=== PATIENT | female | born 2000 | race Caucasian/White ===

== ENCOUNTER 2024-02-19 21:21 | Inpatient (IN) | payer OTHER, SELFPAY ==
[2024-02-19] VITALS (28 sets, daily range): BP systolic 124–164; BP diastolic 62–112; PULSE 80–106; TEMP 36.4; O2SAT 96–100; BMI 38.3
[2024-02-19 21:03] LABS: Basophils Percent Auto 0.4 % (0.2-1.2); Eosinophils Absolute Auto 0.1 K/mm3 (0-0.3); Eosinophils Percent Auto 0.8 % (0-4.4); Hematocrit 34.5 % (37.0-47.0); Hemoglobin 11.9 g/dL (12.0-15.0); Immature Granulocyte Absolute 0.04 K/mm3 (0.00-0.031); Immature Granulocyte Percent A 0.4 % (0-0.5); Lymphocytes Absolute Auto 1.66 K/mm3 (0.9-3.2); Lymphocytes Percent Auto 17.9 % (18.3-44.2); Mean Corpuscular HGB Conc 34.5 g/dl (32-36); Mean Corpuscular Hemoglobin 29.2 pg (26-34); Mean Corpuscular Volume 84.6 fl (80-100); Mean Platelet Volume 12.5 fl (7.4-10.4); Monocytes Absolute Auto 0.6 K/mm3 (0.1-0.6); Monocytes Percent Auto 6.6 % (2.6-8.5); Neutrophils Absolute Auto 6.9 K/mm3 (1.3-6.7); Neutrophils Percent Auto 73.9 % (45.5-73.1); Platelet Count Result 213 k/mm3 (150-375); Red Blood Count 4.08 M/mm3 (4.2-5.4); Red Cell Distribution Width 12.6 % (11.5-14.5); White Blood Count 9.3 K/mm3 (4.5-10.0)
[2024-02-19 21:03] LABS: Creatinine Urine 225.1 mg/dL; Total Protein Urine Random 46 mg/dL
[2024-02-19 21:05] LABS: Add Urine Microscopic? YES; Appearance Urine Cloudy (Clear); Bacteria Urine 4+ /hpf; Bilirubin Urine Negative (Negative); Blood Urine Negative (Negative); Color Urine Yellow (Yellow); Glucose Urine UA Negative (Negative); Ketones Urine Trace mg/dL (Negative); Leukocyte Esterase Ur 1+ LEU/UL (Negative); Need Manual Microscopic Reviewed; Nitrate Urine Negative (Negative); Protein Urine 2+ mg/dL (Negative); Specific Grav Ur 1.031 (1.001-1.035); Squamous Epithelial Cell Urine Many /hpf (Few)
[2024-02-19 21:13] LABS: Alanine Aminotransferase 11 U/L (6-35); Albumin Level 3.2 g/dL (3.5-5.1); Alkaline Phosphatase 194 U/L (38-126); Anion Gap 7 mmol/L (4-12); Aspartate Amino Transferase 19 U/L (14-36); Bilirubin,Total 0.3 mg/dL (0.2-1.3); Blood Urea Nitrogen 8 mg/dL (7-17); Calcium 8.9 mg/dL (8.4-10.2); Carbon Dioxide 21 mmol/L (22-30); Chloride 106 mmol/L (98-107); Estimated Glomerular Filt Rate > 60; Glucose 113 mg/dL (65-110); Potassium 3.8 mmol/L (3.4-5.0); Sodium 134 mmol/L (137-145); Uric Acid 6.2 mg/dL (2.5-7.5)
[2024-02-19 21:52] LABS: Barbiturate Screen Urine Negative (Negative); Benzodiazepines Screen Urine Negative (Negative)
[2024-02-19 21:53] LABS: Cannabinoid Screen Urine Negative (Negative); Cocaine Screen Urine Negative (Negative); Methadone Screen Urine Negative (Negative); Opiate Screen Urine Negative (Negative); Phencyclidine Screen Urine Negative (Negative)
--- NOTE | 2024-02-19 21:56 | LDADM ---
This patient, Earnestine Craven, was admitted to Labor/Delivery/Recovery 102 on 02/19/24 at 21:21. Plans for labor, pain management and were discussed with patient. Patient/family oriented to hospital policies and general routines including ID bracelet, bed and alarms, visiting hours, pain management, procedures, bathroom and other care routines, personal items, smoking policy, room service/diet and guest tray routines, security routines, and visiting hours. Patient/Family are encouraged to report perceived risks to care and to ask questions if they do not understand what they are told or what they should do. See OBIX for further documentation.
[2024-02-19 22:00] LABS: Basophils Percent Auto 0.4 % (0.2-1.2); Eosinophils Absolute Auto 0.1 K/mm3 (0-0.3); Eosinophils Percent Auto 0.6 % (0-4.4); Hematocrit 34.4 % (37.0-47.0); Hemoglobin 11.9 g/dL (12.0-15.0); Immature Granulocyte Absolute 0.04 K/mm3 (0.00-0.031); Immature Granulocyte Percent A 0.4 % (0-0.5); Lymphocytes Absolute Auto 1.74 K/mm3 (0.9-3.2); Lymphocytes Percent Auto 18.8 % (18.3-44.2); Mean Corpuscular HGB Conc 34.6 g/dl (32-36); Mean Corpuscular Hemoglobin 29.2 pg (26-34); Mean Corpuscular Volume 84.3 fl (80-100); Mean Platelet Volume 12.6 fl (7.4-10.4); Monocytes Absolute Auto 0.6 K/mm3 (0.1-0.6); Monocytes Percent Auto 6.9 % (2.6-8.5); Neutrophils Absolute Auto 6.7 K/mm3 (1.3-6.7); Neutrophils Percent Auto 72.9 % (45.5-73.1); Platelet Count Result 231 k/mm3 (150-375); Red Blood Count 4.08 M/mm3 (4.2-5.4); Red Cell Distribution Width 12.5 % (11.5-14.5); White Blood Count 9.3 K/mm3 (4.5-10.0)
[2024-02-19 22:15] LABS: Amphetamine Screen Urine Positive (Negative)
--- NOTE | 2024-02-19 22:38 | PM.IMHP ---
H&P: HPI History of Present Illness Date/Time: 02/19/24 22:38 Chief Complaint: at 37. 4 weeks gestation arrived by ambulance for evaluation of elevated bp at home. on ambulance severe range blood pressures, here in hospital bp elevated without severe range pressures. pt had an elevated bp in the office on 02/17/24. pt tested positive for methamphetamine use on 02/16 and agin today on admission, GBS negative. has also been complicated by diet controlled GDM Review of Systems Review of Systems: All systems reviewed & are unremarkable except as noted in HPI and below PMFSH Social History Social History Smoking status: Current every day smoker Tobacco type: e-cigarettes/vaping Substance use: current Do You Feel Safe in your Home?: Yes Lack of Transportation: YES Lack of Food: Never True Current Housing: I Have Housing Concerned About Future Housing: No Difficulty Paying Gas/Electric Bills: No Difficulty Paying for Meds: No Currently Unemployed: No Education: High School Diploma/GED Difficulty w/ Childcare or Family Care: No Spiritual care concerns: No Meds Home Medications and Allergies Allergies Allergy/AdvReac Type Severity Reaction Status Date / Time No Known Allergies Allergy Verified 02/19/24 22:37 Vital Signs Vital Signs - 24 hr 02/19/24 20:31 02/19/24 21:01 02/19/24 21:31 Pulse Rate 101 H 89 90 Blood Pressure 155/89 H 134/77 132/75 Pulse Oximetry Oxygen Delivery 02/19/24 21:33 02/19/24 21:38 02/19/24 21:43 Pulse Rate Blood Pressure Pulse Oximetry 99 99 99 Oxygen Delivery 02/19/24 21:48 02/19/24 21:53 02/19/24 21:53 Pulse Rate Blood Pressure Pulse Oximetry 99 99 97 Oxygen Delivery 02/19/24 21:58 02/19/24 22:03 02/19/24 22:08 Pulse Rate Blood Pressure Pulse Oximetry 98 97 98 Oxygen Delivery 02/19/24 22:09 02/19/24 22:17 02/19/24 22:22 Pulse Rate 89 Blood Pressure 158/112 H Pulse Oximetry 96 97 Oxygen Delivery 02/19/24 22:27 02/19/24 22:32 02/19/24 22:37 Pulse Rate 89 Blood Pressure 124/62 Pulse Oximetry 97 98 96 Oxygen Delivery 02/19/24 21:55 Pulse Rate Blood Pressure Pulse Oximetry Oxygen Delivery Room Air Exam Const: General: cooperative and healthy appearing Resp: Effort & Inspection: normal respiratory effort Cardio: Rate: regular rate GI: Other: soft/gravid Skin: General skin exam: normal color Neuro: General: patient oriented x3 Extrem: General: normal to inspection H&P: Results Labs Labs: Short CBC 02/19/24 02/19/24 Range/Units 20:48 21:55 WBC 9.3 9.3 (4.5-10.0) K/mm3 Hgb 11.9 L 11.9 L (12.0-15.0) g/dL Hct 34.5 L 34.4 L (37.0-47.0) % Plt Count 213 231 (150-375) k/mm3 BMP 02/19/24 20:48 Sodium 134 L Potassium 3.8 Chloride 106 Carbon Dioxide 21 L BUN 8 Creatinine 0.60 L Glucose 113 H Calcium 8.9 Liver Function 02/19/24 Range/Units 20:48 Total Bilirubin 0.3 (0.2-1.3) mg/dL AST 19 (14-36) U/L ALT 11 (6-35) U/L Alkaline Phosphatase 194 H (38-126) U/L Albumin 3.2 L (3.5-5.1) g/dL Urine 02/19/24 Range/Units 20:47 Urine Color Yellow (Yellow) Urine Appearance Cloudy H (Clear) Urine pH 6.0 (5.0-9.0) Ur Specific [place] 1.031 (1.001-1.035) Urine Protein 2+ H (Negative) mg/dL Urine Glucose (UA) Negative (Negative) mg/dL Assessment and Plan Assessment and plan (1) Gestational diabetes: Code(s): O24.419 - Gestational diabetes mellitus in , unspecified control Status: Acute (2) Amphetamine abuse: Code(s): F15.10 - Other stimulant abuse, uncomplicated Status: Acute (3) Gestational HTN: Code(s): O13.9 - Gestational [-induced] hypertension without significant proteinuria, unspecified trimester Status: Acute Plan gestational hypertension amphetamine use diet controlle
[2024-02-19 22:52] LABS: HIV 1/2 Ab P24 Ag Result Negative (Negative)
--- NOTE | 2024-02-19 23:01 | WPDANESEPP ---
Anes - Eval Pre Procedure Procedure: Labor Epidural Date/Time: 02/19/24 23:01 Surgeon: Goran Preop Diagnosis: Labor Pain Pre Op Diagnosis: PIH Workup Patient Data Age: 24 Gender: F Height: 1.55 m Weight: 92 kg Last Vital Signs Pulse 89 02/19/24 22:32 BP 124/62 02/19/24 22:32 Pulse Ox 100 02/19/24 22:57 O2 Del Method Room Air 02/19/24 21:55 Allergies Allergy/AdvReac Type Severity Reaction Status Date / Time No Known Allergies Allergy Verified 02/19/24 22:37 Laboratory Tests 02/19/24 02/19/24 02/19/24 20:47 20:48 21:55 WBC 9.3 K/mm3 9.3 K/mm3 (4.5-10.0) (4.5-10.0) RBC 4.08 L M/mm3 4.08 L M/mm3 (4.2-5.4) (4.2-5.4) Hgb 11.9 L g/dL 11.9 L g/dL (12.0-15.0) (12.0-15.0) Hct 34.5 L % 34.4 L % (37.0-47.0) (37.0-47.0) MCV 84.6 fl 84.3 fl (80-100) (80-100) MCH 29.2 pg 29.2 pg (26-34) (26-34) MCHC 34.5 g/dl 34.6 g/dl (32-36) (32-36) RDW 12.6 % 12.5 % (11.5-14.5) (11.5-14.5) Plt Count 213 k/mm3 231 k/mm3 (150-375) (150-375) MPV 12.5 H fl 12.6 H fl (7.4-10.4) (7.4-10.4) Immature Gran % (Auto) 0.4 % 0.4 % (0-0.5) (0-0.5) Neut % (Auto) 73.9 H % 72.9 % (45.5-73.1) (45.5-73.1) Lymph % (Auto) 17.9 L % 18.8 % (18.3-44.2) (18.3-44.2) [place] % (Auto) 6.6 % 6.9 % (2.6-8.5) (2.6-8.5) Eos % (Auto) 0.8 % 0.6 % (0-4.4) (0-4.4) Baso % (Auto) 0.4 % 0.4 % (0.2-1.2) (0.2-1.2) Lymph # (Auto) 1.66 K/mm3 1.74 K/mm3 (0.9-3.2) (0.9-3.2) [place] # (Auto) 0.6 K/mm3 0.6 K/mm3 (0.1-0.6) (0.1-0.6) Eos # (Auto) 0.1 K/mm3 0.1 K/mm3 (0-0.3) (0-0.3) Baso # (Auto) 0.0 K/mm3 0.0 K/mm3 (0.0-0.1) (0.0-0.1) Abs Immat Gran (auto) 0.04 H K/mm3 0.04 H K/mm3 (0.00-0.031) (0.00-0.031) Absolute Neuts (auto) 6.9 H K/mm3 6.7 K/mm3 (1.3-6.7) (1.3-6.7) Absolute Nucleated RBC 0.000 K/mm3 0.000 K/mm3 (0.0-0.012) (0.0-0.012) Nucleated RBC % 0.0 % 0.0 % (0.0-0.2) (0.0-0.2) Sodium 134 L mmol/L (137-145) Potassium 3.8 mmol/L (3.4-5.0) Chloride 106 mmol/L (98-107) Carbon Dioxide 21 L mmol/L (22-30) Anion Gap 7 mmol/L (4-12) BUN 8 mg/dL (7-17) Creatinine 0.60 L mg/dL (0.7-1.0) Estim Creat Clear Calc Not Reportable Estimated GFR > 60 (59 - ) Glucose 113 H mg/dL (65-110) Uric Acid 6.2 mg/dL (2.5-7.5) Calcium 8.9 mg/dL (8.4-10.2) Total Bilirubin 0.3 mg/dL (0.2-1.3) AST 19 U/L (14-36) ALT 11 U/L (6-35) Alkaline Phosphatase 194 H U/L (38-126) Total Protein 7.0 g/dL (6.3-8.2) Albumin 3.2 L g/dL (3.5-5.1) Urine Color Yellow (Yellow) Urine Appearance Cloudy H (Clear) Urine pH 6.0 (5.0-9.0) Ur Specific [place] 1.031 (1.001-1.035) Urine Protein 2+ H mg/dL (Negative) Urine Glucose (UA) Negative mg/dL (Negative) Urine Ketones Trace H mg/dL (Negative) Ur Blood (Man) Negative (Negative) Urine Nitrate Negative (Negative) Urine Bilirubin Negative (Negative) Urine Urobilinogen 1.0 mg/dL (<2.0) Add Ur Microanalysis Reviewed Leukocyte Esterase Rfl 1+ H [place] (Negative) Urine RBC 3-5 H /hpf (0-2) Urine WBC 11-20 H /hpf (0-3) Ur Squamous Epith Cells Many H /hpf (Few) Urine Bacteria 4+ H /hpf Urine Casts 3-5 U Random Total Protein 46 mg/dL Urine Creatinine 225.1 mg/dL Protein/Creat Ratio 2 0.20 mg/mg (0-0.20) Urine Opiates Screen Negative (Negative) Urine Methadone Screen Negative (Negative) Ur Barbiturates Screen Neg
[2024-02-19] MEDS: LABETALOL HCL 100 MG TABLET 200 MG PO (23:55)
[2024-02-20] VITALS (276 sets, daily range): BP systolic 114–163; BP diastolic 64–108; PULSE 62–112; RESP 16–20; TEMP 36.2–36.9; O2SAT 66–100
[2024-02-20] MEDS: MAGNESIUM SULF 4 GM/WATER100ML 4 GM/100 ML BAG IVPB
[2024-02-20] MEDS: LACTATED RINGERS 1,000 ML 75 ML IV CONT ×3 (00:01→13:13)
[2024-02-20] MEDS: MAGNESIUM SULF 20GM/WATER500ML 500 ML 50 MG IV CONT ×3 (00:39→21:31)
[2024-02-20] MEDS: miSOPROStol 25 MCG TABLET 50 MCG BUCCAL ×3 (00:39→08:44)
[2024-02-20 00:45] LABS: Glucose Point of Care 94 mg/dl (65-105)
[2024-02-20 04:43] LABS: Glucose Point of Care 87 mg/dl (65-105)
[2024-02-20 05:01] LABS: Rapid Plasma Reagin Non-Reactive (NonReactive)
[2024-02-20 08:52] LABS: Glucose Point of Care 83 mg/dl (65-105)
--- NOTE | 2024-02-20 11:30 | PM.OBPNLAB ---
Pain Control Date/time seen: 02/20/24 11:30 Comments: Blood pressures stable, magnesium sulfate, labetalol 200mg po BID, SVE 2-3/70/-2 AROM, moderate amount of clear, odorless fluid, IUPC placed. anticipate vaginal delivery
[2024-02-20] MEDS: fentaNYL CITRATE INJ (*CRX) 100 MCG/2 ML VIAL IV PUSH (12:51)
[2024-02-20 13:02] LABS: Glucose Point of Care 82 mg/dl (65-105)
[2024-02-20 14:19] LABS: Basophils Percent Auto 0.3 % (0.2-1.2); Eosinophils Absolute Auto 0.1 K/mm3 (0-0.3); Eosinophils Percent Auto 0.5 % (0-4.4); Hematocrit 37.6 % (37.0-47.0); Hemoglobin 12.5 g/dL (12.0-15.0); Immature Granulocyte Absolute 0.07 K/mm3 (0.00-0.031); Immature Granulocyte Percent A 0.7 % (0-0.5); Lymphocytes Absolute Auto 1.49 K/mm3 (0.9-3.2); Lymphocytes Percent Auto 14.4 % (18.3-44.2); Mean Corpuscular HGB Conc 33.2 g/dl (32-36); Mean Corpuscular Hemoglobin 28.4 pg (26-34); Mean Corpuscular Volume 85.5 fl (80-100); Mean Platelet Volume 12.5 fl (7.4-10.4); Monocytes Absolute Auto 0.6 K/mm3 (0.1-0.6); Monocytes Percent Auto 5.5 % (2.6-8.5); Neutrophils Absolute Auto 8.1 K/mm3 (1.3-6.7); Neutrophils Percent Auto 78.6 % (45.5-73.1); Platelet Count Result 235 k/mm3 (150-375); Red Cell Distribution Width 12.5 % (11.5-14.5); White Blood Count 10.3 K/mm3 (4.5-10.0)
[2024-02-20 14:32] LABS: Alanine Aminotransferase 12 U/L (6-35); Albumin Level 3.4 g/dL (3.5-5.1); Alkaline Phosphatase 229 U/L (38-126); Anion Gap 5 mmol/L (4-12); Aspartate Amino Transferase 21 U/L (14-36); Bilirubin,Total 0.4 mg/dL (0.2-1.3); Blood Urea Nitrogen 5 mg/dL (7-17); Calcium 7.4 mg/dL (8.4-10.2); Carbon Dioxide 23 mmol/L (22-30); Chloride 100 mmol/L (98-107); Estimated CRCL calculation 148 ml/min; Estimated Glomerular Filt Rate > 60; Glucose 89 mg/dL (65-110); Sodium 128 mmol/L (137-145); Uric Acid 6.1 mg/dL (2.5-7.5)
--- NOTE | 2024-02-20 15:14 | PC.NURSE ---
see OBIX for vital signs
[2024-02-20 16:40] LABS: Glucose Point of Care 81 mg/dl (65-105)
[2024-02-20] MEDS: OXYTOCIN 30 UNITS/NS 500 ML 30 UNITS/500 ML BAG 999 UNITS IV CONT (17:25)
--- NOTE | 2024-02-20 17:34 | P.PCNOB_ITS ---
OB - Vaginal Delivery Note Procedure Delivery date: 02/20/24 Events: Preeclampsia w severe features and Other (amphetamine positive) Induction method: AROM, Per Misoprostol Protocol and Per Pitocin Protocol Delivery monitor: External Uterine and Internal Uterine Route of delivery: Episiotomy description: None Laceration Description: None Specimen: Yes Quantitative Blood Loss (ml): 50 Anesthesia type: Epidural Disposition: Floor Complications: No immediate complications [place] Baby Date of : 02/20/24 Time of : 17:26 Gestational Age by Date: 36 Infant gender: Female Weight (pounds): 5 Weight (ounces): 7 presentation: vertex position: Left Occiput Anterior Placenta delivery description: Spontaneous Cord Vessel Description: 3 Vessels, Nuchal Cord (x1), Loose and Clamped/Cut Narrative: baby to warmer for evaluation
[2024-02-20] MEDS: OXYTOCIN 30 UNITS/NS 500 ML 30 UNITS/500 ML BAG 125 UNITS IV CONT (18:17)
[2024-02-20] MEDS: IBUPROFEN 600 MG TABLET PO (20:58)
[2024-02-20] MEDS: ACETAMINOPHEN 325 MG TABLET 650 MG PO (20:58)
[2024-02-21] VITALS (7 sets, daily range): BP systolic 122–154; BP diastolic 70–94; PULSE 75–90; RESP 16–18; TEMP 36.3–37; O2SAT 99–100
[2024-02-21] MEDS: MAGNESIUM SULF 20GM/WATER500ML 500 ML 50 MG IV CONT (07:08)
[2024-02-21] MEDS: ACETAMINOPHEN 325 MG TABLET 650 MG PO ×3 (07:11→20:00)
--- NOTE | 2024-02-21 08:02 | PM.OBPNVD ---
OB - PN: Subj Subjective Date/time seen: 02/21/24 08:02 Interval history: pp day 1 denies headache, visual changes, epigastric pain magnesium sulfate running planning 24 hr after delivery baby in nursery care coordination to see pt bp stable OB - PN: Obj Data Labs 02/21/24 03:51 02/20/24 14:05 Labs: Laboratory Results - last 24 hr 02/20/24 02/20/24 02/20/24 08:48 12:59 14:05 WBC 10.3 H RBC 4.40 Hgb 12.5 Hct 37.6 MCV 85.5 MCH 28.4 MCHC 33.2 RDW 12.5 Plt Count 235 MPV 12.5 H Immature Gran % (Auto) 0.7 H Neut % (Auto) 78.6 H Lymph % (Auto) 14.4 L [place] % (Auto) 5.5 Eos % (Auto) 0.5 Baso % (Auto) 0.3 Lymph # (Auto) 1.49 [place] # (Auto) 0.6 Eos # (Auto) 0.1 Baso # (Auto) 0.0 Abs Immat Gran (auto) 0.07 H Absolute Neuts (auto) 8.1 H Absolute Nucleated RBC 0.000 Nucleated RBC % 0.0 Sodium 128 L Potassium 4.0 Chloride 100 Carbon Dioxide 23 Anion Gap 5 BUN 5 L Creatinine 0.50 L Estim Creat Clear Calc 148 Estimated GFR > 60 Glucose 89 POC Capillary Glucose 83 82 Uric Acid 6.1 Calcium 7.4 L Total Bilirubin 0.4 AST 21 ALT 12 Alkaline Phosphatase 229 H Total Protein 7.0 Albumin 3.4 L 02/20/24 02/21/24 16:33 03:51 WBC RBC Hgb 11.7 L Hct 34.3 L MCV MCH MCHC RDW Plt Count MPV Immature Gran % (Auto) Neut % (Auto) Lymph % (Auto) [place] % (Auto) Eos % (Auto) Baso % (Auto) Lymph # (Auto) [place] # (Auto) Eos # (Auto) Baso # (Auto) Abs Immat Gran (auto) Absolute Neuts (auto) Absolute Nucleated RBC Nucleated RBC % Sodium Potassium Chloride Carbon Dioxide Anion Gap BUN Creatinine Estim Creat Clear Calc Estimated GFR Glucose POC Capillary Glucose 81 Uric Acid Calcium Total Bilirubin AST ALT Alkaline Phosphatase Total Protein Albumin OB - PN A/P Plan day: 1 Plan: routine care Time Spent With Patient Time: Total time spent is greater than 50% in coordination of care (as documented) at patient's floor/unit and/or counseling patient: Review of Systems Review of Systems: All systems reviewed & are unremarkable except as noted in HPI and below Exam Const: General: cooperative and obese Chest: Chest palpation & inspection: normal inspection of the chest Resp: Effort & Inspection: normal respiratory effort Cardio: Rate: regular rate GI: Other: soft Skin: General skin exam: normal color Neuro: General: patient oriented x3 Extrem: General: normal to inspection Psych: Appearance: grossly normal
[2024-02-21 08:46] LABS: Basophils Absolute Auto 0.1 K/mm3 (0.0-0.1); Basophils Percent Auto 0.5 % (0.2-1.2); Eosinophils Absolute Auto 0.1 K/mm3 (0-0.3); Eosinophils Percent Auto 0.8 % (0-4.4); Hematocrit 34.6 % (37.0-47.0); Hemoglobin 11.6 g/dL (12.0-15.0); Immature Granulocyte Absolute 0.15 K/mm3 (0.00-0.031); Immature Granulocyte Percent A 1.4 % (0-0.5); Lymphocytes Absolute Auto 2.41 K/mm3 (0.9-3.2); Lymphocytes Percent Auto 23.2 % (18.3-44.2); Mean Corpuscular HGB Conc 33.5 g/dl (32-36); Mean Corpuscular Hemoglobin 29.3 pg (26-34); Mean Corpuscular Volume 87.4 fl (80-100); Mean Platelet Volume 12.4 fl (7.4-10.4); Monocytes Absolute Auto 0.9 K/mm3 (0.1-0.6); Monocytes Percent Auto 8.2 % (2.6-8.5); Neutrophils Absolute Auto 6.8 K/mm3 (1.3-6.7); Neutrophils Percent Auto 65.9 % (45.5-73.1); Platelet Count Result 218 k/mm3 (150-375); Red Blood Count 3.96 M/mm3 (4.2-5.4); Red Cell Distribution Width 12.6 % (11.5-14.5); White Blood Count 10.4 K/mm3 (4.5-10.0)
--- NOTE | 2024-02-21 10:53 | WPDANLDPN2 ---
Anes-Prog Note L&D Date/Time: 02/21/24 10:53 Comfortable throughout: labor and delivery Neuraxial method: epidural Epidural/Spinal procedure site: clean & non-tender Neuro status: Neuro function grossly intact. Cardiovascular status: normal Respiratory status: normal Airway patency: baseline Mental status: baseline Post-Op hydration status: normal Vital Signs: Last Vital Signs Temp 36.4 C L 02/21/24 07:40 Pulse 88 02/21/24 07:40 Resp 16 02/21/24 07:40 BP 131/73 02/21/24 07:40 Pulse Ox 100 02/21/24 07:40 O2 Del Method Room Air 02/19/24 21:55 Pain score (VAS): 4/10 I/O: Intake & Output 02/20/24 02/21/24 02/21/24 23:59 07:59 15:59 Intake Total 1000 1380.8 Output Total 1900 Balance 1000 -519.2 Post-procedural complaints: none Patient feedback: Patient satisfied with anesthetic care.
[2024-02-21] MEDS: IBUPROFEN 600 MG TABLET PO ×2 (11:45→17:34)
[2024-02-21] MEDS: LACTATED RINGERS 1,000 ML 75 ML IV CONT (11:52)
--- NOTE | 2024-02-21 15:21 | OBPPTRN ---
Patient transferred to post room # via ( ). Support person present. Oriented to unit, room, information board, rooming in, admission packet and security measures. Patient verbalizes understanding.
--- NOTE | 2024-02-21 16:26 | PCCCNOTE ---
met with pt. and YUSUF Allen. This is pt.'s second child, Alejandro's first. Pt. reports she has a son at home. Pt. and Alejandro report they have all necessary supplies at home including a car seat, crib, clothing etc. When asked pt. confirms that she did use methamphetamines, she reports that she hasn't used in several months however does think she smoked a methamphetamine laced marijuana blunt during her baby shower and this is the cause of the positive test. Pt. made aware baby tested positive as well. Pt. denies any other substance use besides marijuana and methamphetamines. Pt. aware that DCFS will be contacted and will likely come meet with her to determine plan. Pt. reports she has had DCFS in the past and this report was recently (within last year) closed. She confirms one of the allegations during that time was methamphetamine use. Pt. offered resources for drug cessation however she declines, she states this was a one off and she has been sober for some time. Requested resources and a list of PMD's to establish with a provider. This was provided to her. Submitted online DCFS report # [id number] with above information. 16:00 Called DCFS hotline to inquire whether they have processed report. Spoke with Lissette Barlow (call report # [id number]) who reports she cannot provide information other than to state that above DCFS report # is still being processed and someone will contact the medical case manager once processed. Spoke with RN who confirms pt. may be ready for discharge in next day or so pending ability to feed and gain weight.
--- NOTE | 2024-02-21 19:20 | PC.NURSE ---
Per DCFS Skiff Operator Shukri Brunson, baby not to be discharged under the parents care. Notify DCFS prior to discharge.
[2024-02-22 00:30] VITALS: BP 147/91; PULSE 71; RESP 18; TEMP 36.6
[2024-02-22] MEDS: IBUPROFEN 600 MG TABLET PO ×3 (00:30→17:03)
[2024-02-22 04:10] VITALS: BP 123/81; PULSE 86
--- NOTE | 2024-02-22 07:09 | P.PNOB_ITS ---
OB - PN: Subj Subjective Date/time seen: 02/22/24 07:09 Interval history: pp day 2 denies headache, visual changes, epigastric pain baby will not be going home with pt will continue to monitor bp OB - PN: Obj Data Labs 02/21/24 08:35 02/20/24 14:05 Labs: Laboratory Results - last 24 hr 02/21/24 02/21/24 03:51 08:35 WBC 10.4 H RBC 3.96 L Hgb Cancelled 11.6 L Hct Cancelled 34.6 L MCV 87.4 MCH 29.3 MCHC 33.5 RDW 12.6 Plt Count 218 MPV 12.4 H Immature Gran % (Auto) 1.4 H Neut % (Auto) 65.9 Lymph % (Auto) 23.2 [place] % (Auto) 8.2 Eos % (Auto) 0.8 Baso % (Auto) 0.5 Lymph # (Auto) 2.41 [place] # (Auto) 0.9 H Eos # (Auto) 0.1 Baso # (Auto) 0.1 Abs Immat Gran (auto) 0.15 H Absolute Neuts (auto) 6.8 H Absolute Nucleated RBC 0.000 Nucleated RBC % 0.0 OB - PN A/P Plan day: 2 Plan: routine care Time Spent With Patient Time: Total time spent is greater than 50% in coordination of care (as documented) at patient's floor/unit and/or counseling patient: Review of Systems Review of Systems: All systems reviewed & are unremarkable except as noted in HPI and below Exam Const: General: cooperative and healthy appearing Chest: Chest palpation & inspection: normal inspection of the chest Cardio: Rate: regular rate GI: Other: soft Extrem: General: normal to inspection
[2024-02-22 07:30] VITALS: BP 139/69; PULSE 70; RESP 16; TEMP 36.8; O2SAT 100
[2024-02-22] MEDS: LABETALOL HCL 100 MG TABLET 200 MG PO ×2 (07:47→20:50)
[2024-02-22 13:00] VITALS: BP 140/70; PULSE 68; RESP 15; O2SAT 99
[2024-02-22 15:34] VITALS: BP 143/70; PULSE 71; RESP 16; O2SAT 99
[2024-02-22 20:50] VITALS: BP 145/91; PULSE 74; RESP 18; TEMP 36.7
[2024-02-22] MEDS: ACETAMINOPHEN 325 MG TABLET 650 MG PO (20:50)
[2024-02-23 00:05] VITALS: BP 108/63; PULSE 80
[2024-02-23] MEDS: IBUPROFEN 600 MG TABLET PO ×2 (00:07→06:44)
[2024-02-23 04:56] VITALS: BP 132/86; PULSE 75
[2024-02-23 07:50] VITALS: BP 130/75; PULSE 76; RESP 16; TEMP 36.4; O2SAT 99
--- NOTE | 2024-02-23 08:59 | PM.OBPNVD ---
OB - PN: Subj Subjective Date/time seen: 02/23/24 08:59 Interval history: pp day 2 denies headache, visual changes, epigastric pain baby will not be going home with pt will continue to monitor bp Patient comments: no complaints, pain well controlled and tolerating diet OB - PN: Obj Data Labs 02/21/24 08:35 02/20/24 14:05 OB - PN A/P Plan day: 2 Plan: routine care and discharge home Time Spent With Patient Time: Total time spent is greater than 50% in coordination of care (as documented) at patient's floor/unit and/or counseling patient: Exam Const: General: comfortable and no acute distress Resp: Effort & Inspection: normal respiratory effort Auscultation: no rales, no rhonchi and no wheezes Cardio: Rate: regular rate Heart sounds: no click, no murmurs and no rubs GI: GI Palp: Yes Soft to palpation and No Tenderness to palpation present (GI) Auscultation: normal bowel sounds Extrem: General: normal to inspection, no pedal edema and no calf tenderness
--- NOTE | 2024-02-23 09:00 | P.DS_ITS ---
DS: Admitting Diagnosis Discharge Date February 23, 2024 Admitting Diagnosis term DS: Discharge Diagnosis Discharge Diagnosis (1) Term delivered: Code(s): O80 - Encounter for full-term uncomplicated delivery Status: Acute OB - DS: Summary OB Procedures : None OB Procedures Intrapartum: Spontaneous Vag Delivery OB Procedures: : None Peripartum Data Laceration Description: None Episiotomy description: None Time Spent with Patient Time attestation: Total time spent providing and/or coordinating discharge services: DS: Data Data Completed and Pending Pending studies at discharge: Pending at discharge 02/20/24 17:28 Surgical [PTH] Routine Discharge Plan Discharge Discharging Clinician: Дмитрий Sheldon Patient Disposition: Home, Self-Care Activity: pelvic rest Diet: regular Patient Instructions: Antibiotic Form Stand Alone Forms: General Discharge Information Follow-up/Referrals: Дмитрий Sheldon MD [Physician] - Discharge Medications: New labetalol 100 mg Tablet 200 mg PO Q12HR Qty: 60 0RF Date of admission: 02/19/24 21:21 Primary Care Provider: PHYSICIAN,SENIOR CONTROLS ANALYST Admitting Provider: Richard Zimmer Attending physician on admission: Richard Zimmer Condition: Stable
[2024-02-23] MEDS: LABETALOL HCL 100 MG TABLET 200 MG PO (09:18)
[2024-02-25 10:13] VITALS: BP 152/102; PULSE 74; RESP 18; TEMP 36.3; O2SAT 100
== END 2024-02-23 14:30 | disposition home or self-care (01) | DRG 560 ==
LOC: ANHOBOP 21:22 → ANHLDR 21:34 → ANHOB2 02-21 12:16 → ANHLDR 02-25 07:10 → ANHOB2 02-25 07:10
PROVIDERS: Advanced Practice Midwife; Obstetrics & Gynecology; Admitting Provider Obstetrics & Gynecology; Visit Provider Obstetrics & Gynecology
DX: O13.4 Gestational [pregnancy-induced] hypertension without significant proteinuria, complicating childbirth (principal); Z37.0 Single live birth; Z3A.37 37 weeks gestation of pregnancy; O69.81X0 Labor and delivery complicated by cord around neck, without compression, not applicable or unspecified; O14.14 Severe pre-eclampsia complicating childbirth; O24.420 Gestational diabetes mellitus in childbirth, diet controlled; O99.324 Drug use complicating childbirth; F15.10 Other stimulant abuse, uncomplicated
CPT/HCPCS: 36415; 80053; 80307; 81001; 82570; 82948; 84156; 84550; 85014; 85018; 85025; 86592; 86703; 86850; 86900; 86901; 87086; 88307; A9270; G0432; J2590; J2795; J3010; J3475; J7120

== ENCOUNTER 2025-01-08 18:36 | Outpatient (RCR) | payer OTHER, SELFPAY ==
[2025-01-08 19:17] VITALS: BP 136/81; PULSE 97
--- NOTE | 2025-01-08 19:19 | PC.NURSE ---
Pt discharged home undelivered in stable condition per order. Discharge instructions discussed with pt, pt stated understanding, all questions and concerns answered. Pt ambulated out of department with all belongings. S.O @ pt side.
== END 2025-04-08 23:59 | disposition home or self-care (01) ==
LOC: ANHOBOP 18:36
PROVIDERS: Visit Provider Obstetrics & Gynecology
DX: O36.8130 Decreased fetal movements, third trimester, not applicable or unspecified (principal); Z3A.39 39 weeks gestation of pregnancy
CPT/HCPCS: 59025

== ENCOUNTER 2025-01-12 08:14 | Inpatient (IN) | payer OTHER, SELFPAY ==
[2025-01-12] VITALS (51 sets, daily range): BP systolic 92–174; BP diastolic 34–150; PULSE 73–107; RESP 16–20; TEMP 35.8–36.6; O2SAT 95–100; BMI 45.8
--- OUTSIDE RECORDS SUMMARY | 2025-01-12 08:26 | XMS_ITS | Patient Health Record ---
Demographics Address [address] [place] [address] Mobile Email Address Preferred Language en Marital Status unmarried Roman Catholic Affiliation Unknown Race White Ethnic Group Not or Lati no Author Organization [facility] Address [address] [place] [address] Care Team Providers Care Store Coordinator Name Role Phone Teresa Walsh Primary Care Provider [phone] Reason For Referral No Information Social History PRAPARE Question Answer Notes Date Completed/Updated: 09/24/2024 What is your current housing situation? I have h ousing Are you worried about losing your housing? No What is the highest level of school that you have finished? High school diploma or GED What is your current work situation? Unemployed and seeking work In the past year, have you o r any family members you live with been unable to get any of the following when it was really needed? Check all that apply I do not have problems meeting my needs Has lack of transportation k ept you from medical appointments, meetings, work or from getting things needed for daily living? No How often do you see or talk to people that you care about and feel close to? (For example: talking to friends on the phone, visiting friends or family, going to confucianism or club meetings) More than 5 times a week How stressed are you? Stress is when someone feels tense, nervous, anxious, or can\t sleep at night because their mind is troubled Somewhat In the past year have you sp ent more than 2 nights in a row in a correction, usp, jail center, or juvenile correctional facility? No Do you feel physically and e motionally safe where you currently live? Yes In the past year, have you b een afraid of your partner or ex-partner? No PRAPARE Score: 5 Encounters Encounter Location Date Provider Diagnosis [address] [place] [address] 09/25/2024 Teresa Walsh Plan Of Treatment No Information Insurance Providers Payer Name Payer Address Payer Phone Subscriber Number Group Number Insured Name Patient Relationship to Insured Coverage Start Date Coverage End Date [facility] Att Claims Department [address] [place] [address] [id number] Still, Earnestine Self - patient is the insured 4
--- OUTSIDE RECORDS SUMMARY | 2025-01-12 08:26 | XMS_ITS | Clinical Summary ---
Demographics Address [address] [place] [address] Home Phone Mobile Phone Email Address Preferred Language Belarusian Marital Status Life Partner Bahai Affiliation Unknown Race White Ethnic Group Not or Lati no Author [facility] Address [address] [place] [id number] Care Team Providers Care Grades 7 And 8 Teacher Name Role Phone No, Physician Primary Care Provider [phone] Allergies No known active allergies Medications vit 41-qnxh-jauqf-dh a 27mg iron- 800 mcg-250 mg capsule Take by mouth Active Active Problems Problem Noted Date Diagnosed Date LGSIL on Pap smear of cervix 11/18/2023 Abnormal Papanicolaou smear of cervix with positive human papilloma virus (HPV) test 10/23/2023 Encounter for supervision of normal , a ntepartum 08/21/2023 History of diet controlled g estational diabetes mellitus (GDM) 08/21/2023 History of drug abuse 08/21/2023 Immunizations Immunization Administration Dates Next Due Tdap 12/17/2023 Medical History Medical History Date Comments Gestational diabetes Family History Medical History Relation Name Comments Diabetes Father Hypertension Father Diabetes Maternal Grandmother Diabetes Paternal Grandmother Breast cancer Neg Hx Colon cancer Neg Hx Ovarian cancer Neg Hx Uterine cancer Neg Hx Relation Name Status Comments Father Maternal Grandmother Paternal Grandmother Social History Tobacco Use Types Packs/Day Years Used Date Smoking Tobacco: Every Day Cigarettes Smokeless Tobacco: Never Tobacco Cessation:Ready to Q uit: Not Asked; Counseling Given: Not Answered Comments No Sex and Gender Information Value Date Recorded Sex Assigned at Not on file Legal Sex Female 6:59 PM TOP ICER Gender Identity Female 07/04/2023 11:21 PM TOP ICER Sexual Orientation Straight 07/04/2023 11 :21 PM TOP ICER Obstetrics History Para Term AB IAB SAB Ectopic Multiple Livin g Live Births 3 1 1 1 1 1 1 Date Outcome GA Total Labor Labor/2nd/3rd Weight Sex Type Anes PTL Felicia A1 A5 Name Clin 014 Term 39w 0d 3.572 kg (7 lb 14 oz) M Vag-S pont Epidur al N Livin g Complications:Gestational di abetes Delivery Location:[facility] 2018 SAB SAB Last Filed Vital Signs Vital Sign Reading Time Taken Comments Blood Pressure 120/70 12/17/2023 1:53 PM CDT Pulse - - Temperature - - Respiratory Rate - - Oxygen Saturation - - Inhaled Oxygen Concentration - - Weight 89.8 kg (198 lb) 12/17/2023 1:53 PM CDT Height 154.9 cm (5' 1) 12/17/2023 1:53 PM CDT Body Mass Index 37.41 12/17/2023 1:53 PM CDT Plan of Treatment Health Maintenance Due Date Last Done Comments Depression Screening 1999 Regular Well Visit/Exam 18-64 2017 Pneumococcal vaccine <65 (1 of 2 - PCV) 2018 Cervical Cancer Screening 08/20/2024 08/21/2023, 02/2024 Influenza Vaccine (#1) 2025 6, 02/13/2016, 04/12/2015, Additional history exists DTaP/Tdap/Td Vaccine (7 - Td or Tdap) 12/16/2033 12/17/2023, 01/29/2014, 08/02/2011, Additional history exists Hepatitis B Screening Completed 12/15/2002 , 06/26/2002, 03/09/2002 Varicella Vaccines Completed 01/11/2010, 11/07/2001 HPV Vaccines Completed 02/13/2016, 01/12, 08/02/2011 Hepatitis C Screening Completed 12/17/2023 Procedures Procedure Name Priority Date/Time Associated Diagnosis Comments HEPATITIS C ANTIBODY Routine 12/17/2023 2:53 PM CDT Encounter for supervision of normal in first trimester, unspecified PAP WITH REFLEX TO HIGH RISK HPV Routine 08/21/2023 11:07 AM CDT Encounter for supervision of normal in first trimester, unspecified Encounter for screening for cervical cancer from Last 3 Months or Most Recently Relevant to Health Maintenance Results * Hepatitis C antibody Blood (12/17/2023 2:53 PM CDT) Hep C Ab Nonreactive Nonreactive Comment: Antibodies to HCV not detected. Does NOT exclude the possibility of recent exposure to HCV. Current interpretive data was last revised on 22 Interpretive Data Nonreactive: Antibodies to HCV not detected. Does NOT exclude the possibility of recent exposure to HCV. Equivocal: Equivocal for HCV antibodies. Supplemental molecular testing will be automatically performed to determine infection status in accordance with current CDC screening recommendations. Reactive: Positive for HCV antibodies. This may represent current or past HCV infection. Supplemental molecular testing will be automatically performed to determine current infection status in accordance with current CDC screening recommendations. Interpretive data was last revised on 2019. Blood 12/17/2023 2:53 PM CDT 12/17/2023 6:32 PM CDT Tessa Phillips NP LAB MICROBIOLOGY - GENERAL O RDERABLES Edited Result - Final [facility] [address] [facility] Department [place] [address] * (ABNORMAL) Pap with reflex to High Risk HPV and Genotyping (Cytology Component) (08/21/2023 11:07 AM CDT) Endocervical (Pap test) 08/21/2023 11:07 AM CDT 08/22/2023 2:09 PM CDT Narrative [facility] - 08/29/2023 8:51 AM CDT EPIC results best viewed via link to PDF [facility] Fay Espinoza [facility] [place] [address] Note to Patients: This report may contain a detailed description of human tissue sent by a health care provider to the laboratory for pathologic evaluation. The content of this report is essential for diagnosis and may provide important critical findings. This information may be unfamiliar to patients to review without a medical professional present. It is advised that the patient review this report in the presence of a health care provider who can answer questions and explain the details. CYTOPATHOLOGY REPORT FINAL WITH ADDENDUM Patient Name: DEANDRA CRAVEN Gender: F : 2000 (Age: 23) Address: [facility] [address] [place] [address] [facility] #: [id number] Service: DEFAULT Location: Patient Type: [facility] SPECIMEN Taken: 08/21/2023 Received: 08/22/2023 Accessioned: 08/23/2023 Reported: 08/29/2023 Physician(s): Marilyn Marks FINAL INTERPRETATION SOURCE OF SPECIMEN Liquid based Thin Prep pap with Reflex HPV: STATEMENT OF ADEQUACY - Satisfactory for evaluation - Endocervical cells/transformation zone sample absent GENERAL CATEGORIZATION: - Epithelial cell abnormality INTERPRETATION: - Atypical squamous cells; cannot exclude high grade squamous intraepithelial lesion - Low grade squamous intraepithelial lesion [facility]/08/29/2023 08:50 By this signature, I attest that the above diagnosis is based upon my personal examination of the slides(and/or other material indicated in the diagnosis). Isra Méndez M.D. Report Electronically Reviewed and Signed Out By Isra Méndez M.D. 08/29/2023 08:51:30 WALTER Le(ASCP) Cervicovaginal Cytology (Pap Test) Disclaimer: The Pap test is a screening test used to detect cervical cancer and its precursors; it is not a diagnostic procedure. False negative and false positive results do occur. Pap test results should be interpreted in the context of pertinent clinical information and biopsy results as indicated. CMS Clinical Laboratory Improvement Amendments (CLIA) mandate that cytologic and histologic results be correlated for laboratory quality rep & improvement standards. FOR ALL HIGH-GRADE CASES we request submission of follow-up histological material and/or reports that have not been previously provided so that we may fulfill said required standards. Gross Description A. Liquid based Thin Prep pap with Reflex HPV: Cervical/vaginal - Screening ThinPrep Clinical Diagnosis and History Last Menstrual Period: 05-21-23 The patient is a 23 year old female with screening. Addenda Addendum Ordered:09/03/2023Status:Signed OutAddendum Complete:09/03/2023y:Isra Méndez M.D.Addendum Signed Out:09/04/2023 Addendum Comment Addendum created to add HPV results (Abnormal-Positive for High Risk HPV) HPV HR 16- NOT DETECTED HPV HR 18- NOT DETECTED HPV HR NON 16/18- DETECTED Interpretive Data Nucleic acid amplification for detection of high-risk Human Papilloma virus (HPV) is performed by the Paul Yancy 6800 HPV test. This assay specifically detects HPV-16 and HPV-18 genotypes. The following HPV genotypes are detected as high-risk HPV: HPV-31, 33, 35, 39, 45, 51, 52, 56, 58, 59, 66, and 68. This assay has been approved by the United States Food and Drug Administration for detection of HPV in cervical specimens collected by a physician using an endocervical brush/spatula or cervical broom and placed in the ThinPrep Pap Test PreservCyt collection containers. The performance characteristics of this test have been verified by the [facility]ious Disease laboratory. Correlate with reported cytology results, as applicable. Interpretive data last revised 22 By this signature, I attest that the above diagnosis is based upon my personal examination of the slides(and/or other material indicated in the diagnosis). Isra Méndez M.D.Report Electronically Reviewed and Signed Out By Isra Méndez M.D. 09/04/2023 09:34:12 Report Images and scanned documents, if included only viewable in PDF version The performance characteristics of some immunohistochemical stains, in-situ hybridization and fluorescence in-situ hybridization tests and immunophenotyping by flow cytometry cited in this report (if any) were determined by the Surgical Pathology Department at [facility] as part of an ongoing quality audit representative program and in compliance with federally mandated regulations drawn from the Clinical Laboratory Improvement Act of 1988 (CLIA '88). Some of these tests rely on the use of analyte specific reagents and are subject to specific labeling requirements by the US Food and Drug Administration. Such diagnostic tests may only be performed in a facility that is certified by the Department of Health and Human Services as a high complexity laboratory under CLIA '88. The FDA has determined that such clearance or approval is not necessary. This test is used for clinical purposes. It should not be regarded as investigational or for research. Nevertheless, federal rules concerning the medical use of analyte specific reagents require that the following disclaimer be attached to the report: This test was developed and its performance characteristics determined by the Surgical Pathology Department of [facility]. It has not been cleared or approved by the U. S. Food and Drug Administration. Tessa Phillips NP LAB CYTOLOGY ORDERABLES Eloise styles Result [facility] from Last 3 Months or Most Recently Relevant to Health Maintenance Insurance [address] Care Teams Grades 7 And 8 Teacher Relationship Specialty Start Date End Date No, Physician PCP - General 07/31/23
--- OUTSIDE RECORDS SUMMARY | 2025-01-12 08:26 | XMS_ITS | Clinical Summary ---
Demographics Address [address] [place] [address] [place] [address] Home Phone Email Address Preferred Language Romansh Marital Status Unknown Jewish Affiliation Unknown Race White Ethnic Group Not or Lati no Author Organization [facility] Address [address] [place] [id number] Care Team Providers Care Manager Voice Name Role Phone Unavailable Primary Care Provider Unavailabl e Social History Tobacco Use Types Packs/Day Years Used Date Smoking Tobacco: Never Assessed Comments Unknown Sex and Gender Information Value Date Recorded Sex Assigned at Not on file Legal Sex Female 8:09 PM CDT Gender Identity Not on file Sexual Orientation Not on file Last Filed Vital Signs Vital Sign Reading Time Taken Comments Blood Pressure 100/60 10/07/2012 8:44 AM CDT Pulse - - Temperature - - Respiratory Rate - - Oxygen Saturation - - Inhaled Oxygen Concentration - - Weight 56.7 kg (125 lb) 08/03/2013 4:13 PM CDT Height 154.9 cm (5' 1) 08/03/2013 4:13 PM CDT Body Mass Index 23.62 08/03/2013 4:13 PM CDT Plan of Treatment Health Maintenance Due Date Last Done Comments Cervical Cancer Screening Pa p Smear (Age 21 to 29) Every 3 Years 1999 Cervical Cancer Screening 1999 Annual Physical 2002 HPV Vaccines (1 - 3-dose series) 2014 Hepatitis C 2017 DTaP, Tdap and Td Vaccines ( 1 - Tdap) 2018 Hepatitis B Vaccines (1 of 3 - 19+ 3-dose series) 2018 COVID-19 Vaccine (2023-2 5 season) 2024 Meningococcal B Vaccine Aged Out No l onger eligible based on patient's age to complete this topic Meningococcal Vaccine Aged Out No zelda christen eligible based on patient's age to complete this topic Pneumococcal Vaccine: Pediat rics (0 to 5 Years) and At-Risk Patients (6 to 49 Years) Aged Out No longer eligible b ased on patient's age to complete this topic RSV Immunizations Under 20 Months Aged Out No longer eligible based on patient's age to complete this topic
[2025-01-12 08:57] LABS: Hematocrit 37.3 % (37.0-47.0); Hemoglobin 12.3 g/dL (12.0-15.0); Immature Granulocyte Percent A 1.0 % (0-0.5); Lymphocytes Absolute Auto 1.96 K/mm3 (0.9-3.2); Mean Corpuscular HGB Conc 33.0 g/dl (32-36); Mean Corpuscular Hemoglobin 28.3 pg (26-34); Mean Corpuscular Volume 85.9 fl (80-100); Nucleated Red Blood Cells Absolute Auto 0.000 K/mm3 (0.0-0.012); Nucleated Red Blood Cells Perc 0.0 % (0.0-0.2); Platelet Count Result 217 k/mm3 (150-375); Red Blood Count 4.34 M/mm3 (4.2-5.4); White Blood Count 7.6 K/mm3 (4.5-10.0)
--- NOTE | 2025-01-12 09:05 | LDADM ---
This patient, Earnestine Craven, was admitted to Labor/Delivery/Recovery 106 on 01/12/25 at 08:14. Plans for labor, pain management and were discussed with patient. Patient/family oriented to hospital policies and general routines including ID bracelet, bed and alarms, visiting hours, pain management, procedures, bathroom and other care routines, personal items, smoking policy, room service/diet and guest tray routines, security routines, and visiting hours. Patient/Family are encouraged to report perceived risks to care and to ask questions if they do not understand what they are told or what they should do. See OBIX for further documentation.
[2025-01-12] MEDS: LACTATED RINGERS 1,000 ML 125 ML IV CONT ×2 (09:34→13:01)
[2025-01-12] MEDS: OXYTOCIN 30 UNITS/NS 500 ML 30 UNITS/500 ML BAG IV CONT (09:35)
[2025-01-12 09:37] LABS: Syphilis IgG/IgM Antibody Non-Reactive (Nonreactive)
[2025-01-12 10:11] LABS: Cannabinoid Screen Urine Negative (Negative)
[2025-01-12] MEDS: fentaNYL CITRATE INJ (*CRX) 100 MCG/2 ML VIAL IV PUSH (13:20)
--- NOTE | 2025-01-12 13:26 | WPDOBADMIT ---
Obstetrics - Admit Note Admission Note: record reviewed. No pertinent additions to the history and/or any subsequent changes in the physical findings that are not consistent with the expected course of the were found. Patient admitted for elective induction of labor. AROM performed with small amount of clear fluid. SVE 4/80/-2. Pitocin per protocol Additions to the history and/or subsequent changes in the physical findings follow. None.
[2025-01-12] MEDS: OXYTOCIN 30 UNITS/NS 500 ML 30 UNITS/500 ML BAG 999 UNITS IV CONT (14:18)
[2025-01-12] MEDS: OXYTOCIN 30 UNITS/NS 500 ML 30 UNITS/500 ML BAG 125 UNITS IV CONT (14:49)
--- NOTE | 2025-01-12 14:49 | S_PTH ---
PATIENT: Earnestine Craven LOC: ANHOB2 U#:[id number] AGE/SX: 25/F ROOM: 291 RE01/12/[address]: Дмитрий Sheldon MD : 2000 BED: 00 DIS: 01/14/2025 SPEC #: [id number] RECD: 01/13/25 07:42 STATUS: VALENTINE REQ #: [id number] GISELLE: 01/12/25 14:[address]: Richard Zimmer DEPT: [facility] Surgical RECD BY: Aniya Mcmahon ENTERED: 01/13/25 07:42 SP TYPE: Surgical OTHR DR: MR TEACHER PHYSICIAN Tissues: A - Placenta Procedures: Hematoxylin and Eosin Stain Gross and Microscopic Level 5
--- NOTE | 2025-01-12 14:57 | WPDANESEPPF ---
Anes - Initial Pre Proc Eval Date/Time: 01/12/25 14:57 Surgeon: Richard Zimmer MD Pre Op Diagnosis: IOL Patient Data Age: 25 Gender: F Height: 1.55 m Weight: 110 kg Last Vital Signs Temp 36.1 C L 01/12/25 09:00 Pulse 94 01/12/25 14:45 BP 127/66 01/12/25 14:45 Pulse Ox 100 01/12/25 14:09 O2 Del Method Room Air 01/12/25 09:04 Allergies Allergy/AdvReac Type Severity Reaction Status Date / Time No Known Allergies Allergy Verified 01/12/25 09:18 Home Medications ?Medication ?Instructions ?Recorded ?Confirmed ?Type aspirin 81 mg tablet,delayed 81 mg PO DAILY 01/12/25 01/12/25 History release (Adult Aspirin Regimen) rowicmly-mms-Og-FA 1 mg 1 tablet PO DAILY 01/12/25 01/12/25 History tablet Laboratory Tests 01/12/25 01/12/25 08:38 09:44 WBC 7.6 K/mm3 (4.5-10.0) RBC 4.34 M/mm3 (4.2-5.4) Hgb 12.3 g/dL (12.0-15.0) Hct 37.3 % (37.0-47.0) MCV 85.9 fl (80-100) MCH 28.3 pg (26-34) MCHC 33.0 g/dl (32-36) RDW 13.5 % (11.5-14.5) Plt Count 217 k/mm3 (150-375) MPV 12.1 H fl (7.4-10.4) Immature Gran % (Auto) 1.0 H % (0-0.5) Neut % (Auto) 61.2 % (45.5-73.1) Lymph % (Auto) 25.7 % (18.3-44.2) Sawyer % (Auto) 10.2 H % (2.6-8.5) Eos % (Auto) 1.4 % (0-4.4) Baso % (Auto) 0.5 % (0.2-1.2) Lymph # (Auto) 1.96 K/mm3 (0.9-3.2) Sawyer # (Auto) 0.8 H K/mm3 (0.1-0.6) Eos # (Auto) 0.1 K/mm3 (0-0.3) Baso # (Auto) 0.0 K/mm3 (0.0-0.1) Abs Immat Gran (auto) 0.08 H K/mm3 (0.00-0.031) Absolute Neuts (auto) 4.7 K/mm3 (1.3-6.7) Absolute Nucleated RBC 0.000 K/mm3 (0.0-0.012) Nucleated RBC % 0.0 % (0.0-0.2) Urine Opiates Screen Negative (Negative) Urine Methadone Screen Negative (Negative) Ur Barbiturates Screen Negative (Negative) Ur Phencyclidine Scrn Negative (Negative) Ur Amphetamine Screen Negative (Negative) U Benzodiazepines Scrn Negative (Negative) Urine Cocaine Screen Negative (Negative) U Cannabinoids Screen Negative (Negative) Syphilis IgG/IgM Ab Non-reactive (Nonreactive) Blood Type O Positive Antibody Screen Negative Patient hx anesthesia problems: none Family hx anesthesia problems: none Results Review: All pre-operative results and documents have been reviewed as part of the pre-operative evaluation. [facility] Social History Social History Smoking status: Current every day smoker Tobacco type: e-cigarettes/vaping Substance use: former Do You Feel Safe in your Home?: Yes Lack of Transportation: No Lack of Food: Never True Current Housing: I Have Housing Concerned About Future Housing: No Difficulty Paying Gas/Electric Bills: No Difficulty Paying for Meds: No Currently Unemployed: No Education: High School Diploma/GED Difficulty w/ Childcare or Family Care: No Spiritual care concerns: No Anes - Eval Final PreProcedure Day of Procedure 01/12/25 14:57 Patient weight: morbidly obese Neurological: alert and oriented ASA classification: III Emergent: no Anesthetic plan: proceed Anesthesia type and monitoring: regional epidural and standard monitoring Results Review: All pre-operative results and documents have been reviewed as part of the pre-operative evaluation. Informed Consent: The patient's anesthetic plan and its attendant risks and benefits were discussed with the patient/family/POA. Questions were solicited and answers provided to the satisfaction of the patient/family/POA.
--- NOTE | 2025-01-12 15:09 | PM.OBPRVD ---
OB - Vaginal Delivery Note Procedure Delivery date: 01/12/25 Events: Elective Induction of Labor Induction method: AROM and Per Pitocin Protocol Delivery monitor: External FHT and External Uterine Route of delivery: Episiotomy description: None Laceration Description: None Delivery repair: vicryl Specimen: No Quantitative Blood Loss (ml): 100 Anesthesia type: Epidural Disposition: Floor Complications: No immediate complications Narrative: See H&P and notes for details on patient's admission and labor. She progressed to complete cervical dilation and at the appropriate time began pushing. With adequate expulsive efforts by the mother, the baby's head was delivered without difficulty. Nuchal cord was not present. The baby's left shoulder was anterior and delivered under the pubic symphysis without difficulty. The posterior shoulder and the rest of the baby delivered without difficulty. The umbilical cord was doubly clamped and cut after 60 seconds of delayed cord clamping. Care of the was then assumed by the nursing staff. Baby Date of : 01/12/25 Gestational Age by Date: 39 presentation: vertex position: Left Occiput Anterior Placenta delivery description: Spontaneous Cord Vessel Description: 3 Vessels and Delayed Cord Clamping
[2025-01-12] MEDS: IBUPROFEN 600 MG TABLET PO (19:36)
[2025-01-12] MEDS: DOCUSATE SODIUM 100 MG CAPSULE PO (19:36)
[2025-01-12] MEDS: SIMETHICONE 80 MG TAB.CHEW PO (19:38)
[2025-01-12] MEDS: ACETAMINOPHEN 325 MG TABLET 650 MG PO (19:38)
[2025-01-13] MEDS: IBUPROFEN 600 MG TABLET PO ×2 (01:48→19:49)
[2025-01-13] MEDS: WITCH HAZEL 40 PADS 1 PAD TOPICAL (01:49)
[2025-01-13] MEDS: ACETAMINOPHEN 325 MG TABLET 650 MG PO ×2 (01:49→17:40)
[2025-01-13] MEDS: BENZOCAINE 20% AER SPR (*SP) 56 GM CAN 1 SPRAY TOPICAL (01:49)
[2025-01-13] MEDS: LANOLIN (LANSINOH) 7.5 GM CREAM 1 APPLIC TOPICAL (01:50)
[2025-01-13 05:11] LABS: Hematocrit 35.6 % (37.0-47.0); Hemoglobin 11.6 g/dL (12.0-15.0)
--- NOTE | 2025-01-13 07:28 | WPDANLDPN2 ---
Anes-Prog Note L&D Date/Time: 01/13/25 07:28 Neuro status: Neuro function grossly intact. Cardiovascular status: normal Respiratory status: normal Airway patency: baseline Mental status: baseline Post-Op hydration status: normal Vital Signs: Last Vital Signs Temp 35.8 C L 01/12/25 23:50 Pulse 89 01/12/25 23:50 Resp 16 01/12/25 23:50 BP 134/81 01/12/25 23:50 Pulse Ox 97 01/12/25 23:50 O2 Del Method Room Air 01/12/25 19:55 Pain score (VAS): 0 I/O: Intake & Output 01/12/25 01/12/25 01/13/25 15:59 23:59 07:59 Intake Total 1000 Output Total 100 Balance 900 Post-procedural complaints: none Patient feedback: Patient satisfied with anesthetic care.
--- NOTE | 2025-01-13 07:58 | P.PNOB_ITS ---
OB - PN: Subj Subjective Date/time seen: 01/13/25 07:58 Interval history: pp day 1 doing well no complaints OB - PN: Obj Data Labs 01/13/25 04:26 Labs: Laboratory Results - last 24 hr 01/12/25 01/12/25 01/13/25 08:38 09:44 04:26 WBC 7.6 RBC 4.34 Hgb 12.3 11.6 L Hct 37.3 35.6 L MCV 85.9 MCH 28.3 MCHC 33.0 RDW 13.5 Plt Count 217 MPV 12.1 H Immature Gran % (Auto) 1.0 H Neut % (Auto) 61.2 Lymph % (Auto) 25.7 [facility] % (Auto) 10.2 H Eos % (Auto) 1.4 Baso % (Auto) 0.5 Lymph # (Auto) 1.96 [facility] # (Auto) 0.8 H Eos # (Auto) 0.1 Baso # (Auto) 0.0 Abs Immat Gran (auto) 0.08 H Absolute Neuts (auto) 4.7 Absolute Nucleated RBC 0.000 Nucleated RBC % 0.0 Urine Opiates Screen Negative Urine Methadone Screen Negative Ur Barbiturates Screen Negative Ur Phencyclidine Scrn Negative Ur Amphetamine Screen Negative U Benzodiazepines Scrn Negative Urine Cocaine Screen Negative U Cannabinoids Screen Negative Syphilis IgG/IgM Ab Non-reactive Blood Type O Positive Antibody Screen Negative OB - PN A/P Plan day: 1 Plan: routine care Time Spent With Patient Time: Total time spent is greater than 50% in coordination of care (as documented) at patient's floor/unit and/or counseling patient: Review of Systems 2 Review of Systems: All systems reviewed & are unremarkable except as noted in HPI and below Exam 2 Const: General: cooperative, healthy appearing and comfortable Resp: Effort & Inspection: normal respiratory effort Cardio: Rate: regular rate Skin: General skin exam: normal color Neuro: General: patient oriented x3
[2025-01-13] MEDS: MULTIVIT/MIN/PREN/FOL AC/IRON TABLET 1 TAB PO (08:30)
[2025-01-13 09:30] VITALS: BP 126/65; PULSE 88; RESP 18; TEMP 36.3; O2SAT 97
--- NOTE | 2025-01-13 13:19 | PCCCNOTE ---
Addendum entered by Pinky Bacon, [facility] 01/17/25 15:15: Baby's umbilical cord drug screen results faxed to [facility] [phone]. Addendum entered by Pinky Bacon, [facility] 01/13/25 15:44: Recvd voicemail from [facility] [phone]. No one answered when CC called them back. Awaiting call back from [facility] worker. [facility] worker is aware of RN station phone number, if needed while CC is gone for the night. GERARD Rodriguez updated. Addendum entered by Pinky Bacon, [facility] 01/13/25 13:47: Recvd email from [facility] that states: Your information has been received and assessed by a Wash Box Operator. A child abuse/neglect investigation will be initiated as a result of the information you provided. An principal investigator will make an attempt to see and assess the child(raj) within the next 24 hours. GERARD Rodriguez aware of update. Original Note: Recvd consult for OB Substance Abuse Screening. Pt. answered yes to using substances in her past, and her peers and parents using substances. Met with pt. who admits that she does not have custody of either of her children at home. Pt. reports her 10 year old son is staying at her Father's house in [place]. Pt. reports her 10 month old daughter is being cared for by her Mother Sofia. Pt. reports lives at home with FOB Alejandro Amaro at [address], in [place] [facility]. Pt. reports her previous [facility] cases are due to past methamphetamine use. Pt's UDS was + for Meth on previous admission to hospital when delivering her 10 month old, February 2024. Baby's umbilical cord resulted as +Meth as well. Pt's UDS this admission was Negative. Baby's umbilical cord drug screen results are pending. Per GERARD Rodriguez, pt's UDS was + for THC during appt in September. [facility] Report made online #[id number]. GERARD Rodriguez aware of visit.
--- NOTE | 2025-01-13 15:55 | PC.NURSE ---
[facility] here at bedside with patient. Omid Brunson - [facility]
--- NOTE | 2025-01-13 19:01 | PC.NURSE ---
1857 - Ms. Harman from [facility] called to inform this RN that baby and mother were okay to be discharged together tomorrow for their standpoint. Ms. Harman stated that Mikaela, the placement worker, has already been in contact with Earnestine and has seen the house.
[2025-01-13 19:46] VITALS: BP 141/71; PULSE 104; RESP 18; TEMP 36.6; O2SAT 98
[2025-01-14] MEDS: ACETAMINOPHEN 325 MG TABLET 650 MG PO (00:02)
[2025-01-14] MEDS: IBUPROFEN 600 MG TABLET PO (04:01)
[2025-01-14 08:05] VITALS: BP 137/71; PULSE 92; RESP 18; TEMP 36.4; O2SAT 99
--- NOTE | 2025-01-14 08:39 | P.PNOB_ITS ---
OB - PN: Subj Subjective Date/time seen: 01/14/25 08:39 Interval history: pp day 1 doing well no complaints Patient comments: no complaints, pain well controlled and tolerating diet OB - PN: Obj Data Labs 01/13/25 04:26 OB - PN A/P Plan day: 2 Plan: routine care and discharge home Time Spent With Patient Time: Total time spent is greater than 50% in coordination of care (as documented) at patient's floor/unit and/or counseling patient: Exam 2 Const: General: comfortable and no acute distress Resp: Effort & Inspection: normal respiratory effort Auscultation: no rales, no rhonchi and no wheezes Cardio: Rate: regular rate Heart sounds: no click, no murmurs and no rubs GI: GI Palp: Yes Soft to palpation and No Tenderness to palpation present (GI) Auscultation: normal bowel sounds Extrem: General: normal to inspection, no pedal edema and no calf tenderness
--- NOTE | 2025-01-14 08:40 | PM.OBDSVD ---
DS: Admitting Diagnosis Discharge Date 01/14/2025 Admitting Diagnosis Term DS: Discharge Diagnosis Discharge Diagnosis (1) Term delivered: Code(s): O80 - Encounter for full-term uncomplicated delivery Status: Acute OB - DS: Summary OB Procedures : None OB Procedures Intrapartum: Spontaneous Vag Delivery OB Procedures: : None Time Spent with Patient Time attestation: Total time spent providing and/or coordinating discharge services: DS: Data Data Completed and Pending Pending studies at discharge: Pending at discharge 01/12/25 14:49 Surgical [PTH] Routine Discharge Plan Discharge Discharging Clinician: Дмитрий Sheldon Patient Disposition: Home Activity: pelvic rest Diet: regular Patient Instructions: Antibiotic Form Patient Language: Frisian Stand Alone Forms: General Discharge Information Follow-up/Referrals: Дмитирй Sheldon MD [Physician, ORGANIZATIONAL CONSULTANT] Discharge Medications: Continued [id number] 1 mg tablet 1 tablet PO DAILY aspirin [Adult Aspirin Regimen] 81 mg tablet,delayed release (DR/EC) 81 mg PO DAILY Date of admission: 01/12/25 08:14 Primary Care Provider: PHYSICIAN,MEDICAL ASSISTING INSTRUCTOR Admitting Provider: Richard Zimmer Attending physician on admission: Richard Zimmer Condition: Stable
[2025-01-14] MEDS: MULTIVIT/MIN/PREN/FOL AC/IRON TABLET 1 TAB PO (09:12)
[2025-01-14] MEDS: DOCUSATE SODIUM 100 MG CAPSULE PO (09:12)
--- NOTE | 2025-01-14 13:09 | PCCCNOTE ---
Received call from RN. Clarification requested as reports that DCFS is agreeable for baby to discharge into mom, Earnestine's care at discharge. Spoke with Ms. Harman with DCFS at [phone] who confirms she went to pt.'s home and has cleared baby to discharge with mom today. Ms. Harman is aware both will discharge today. She requests discharge paperwork for mother and baby to be faxed to [phone]. Ms. Harman is also aware that once the cord testing comes back the results will be faxed to [facility] as well. RN aware of above and pt. and baby discharging today.
== END 2025-01-14 13:41 | disposition home or self-care (01) | DRG 560 ==
LOC: ANHOB2 01-14 08:41 → ANHLDR 01-15 10:08 → ANHOB2 01-15 10:08
PROVIDERS: Admitting Provider Obstetrics & Gynecology; Visit Provider Obstetrics & Gynecology
DX: O62.3 Precipitate labor (principal); Z37.0 Single live birth; Z3A.39 39 weeks gestation of pregnancy
CPT/HCPCS: 36415; 80307; 85014; 85018; 85025; 86593; 86850; 86900; 86901; 88307; A9270; J2590; J2795; J3010; J7120